=== PATIENT | female | born 1965 | race Caucasian/White ===

== ENCOUNTER 2024-01-17 18:25 | Inpatient (IN) | payer BC, MEDICAID ==
[2024-01-17] MEDS: Sodium Chloride 0.9% 1,000 ML IV ONE (19:15)
[2024-01-17 19:25] LABS: BASOPHILS PERCENT AUTO 0.2 % (0.0-1.0); EOSINOPHILS ABSOLUTE AUTO 0.1 K/mm3 (0.0-0.4); EOSINOPHILS PERCENT AUTO 0.8 % (0.0-6.0); HEMATOCRIT 21.1 % (37.0-47.0); HEMOGLOBIN 7.5 gm/dl (12.0-16.0); IMMATURE GRAN ABSOLUTE AUTO 0.08 K/mm3 (0.00-0.05); IMMATURE GRAN PERCENT AUTO 0.9 % (0.0-0.4); LYMPHOCYTES ABSOLUTE AUTO 1.4 K/mm3 (1.0-4.8); MEAN CORPUSCULAR HEMOGLOBIN 32.9 pg (28.0-32.0); MEAN CORPUSCULAR HGB CONC 35.5 g/dl (32.0-36.0); MEAN CORPUSCULAR VOLUME 92.5 fl (83.0-99.0); MEAN PLATELET VOLUME 10.9 fl (9.4-12.3); MONOCYTES ABSOLUTE AUTO 0.8 K/mm3 (0.0-0.8); MONOCYTES PERCENT AUTO 9.1 % (0.0-8.0); NEUTROPHILS ABSOLUTE AUTO 6.4 K/mm3 (1.8-7.7); NRBC ABSOLUTE 0.02 (0.00-0.02); NRBC PERCENT 0.2 % (0.0-0.2); PLATELET COUNT,PLT 269 K/mm3 (150-400); RED BLOOD CELL COUNT 2.28 M/mm3 (4.10-5.30)
[2024-01-17 20:03] LABS: A/G RATIO 0.8 (1-2); ALBUMIN 2.8 g/dl (3.4-5.0); ANION GAP 7.7 (5-15); BILIRUBIN TOTAL 1.2 mg/dL (0.2-1.0); C-REACTIVE PROTEIN 3.34 mg/dL (<0.30); CALCIUM 7.3 mg/dL (8.5-10.1); CREATININE 1.1 mg/dL (0.55-1.02); EST CRCL DRUG DOSING (CG) 38.52 mL/min; PROTEIN TOTAL,TP 6.5 g/dl (6.4-8.2)
[2024-01-17 20:12] LABS: IRON,FE 209 ug/dL (50-170)
[2024-01-17 20:13] LABS: PERCENT FE SATURATION 116 % (20-55); TOTAL IRON BINDING CAPACITY 180 ug/dL (100-400); TRANSFERRIN 144 mg/dL (202-364)
[2024-01-17 20:14] LABS: POTASSIUM,K 1.7 mEq/L (3.5-5.1)
[2024-01-17] MEDS: Potassium Chloride 10 MEQ in Premix Bag 1 BAG IV SCH (20:28)
[2024-01-17] MEDS: Potassium Chloride 20 MEQ Tab.ER PO ONE ×2 (21:46→22:48)
[2024-01-17] MEDS ORDERED: Magnesium Sulfate (4.06 MEQ/ML) 5 GM/10 ML SDV IV ONE (22:12)
[2024-01-17] MEDS: Magnesium Sulfate/Water Premix 2 GM in Premix Bag 1 BAG IV SCH (22:41)
[2024-01-18] MEDS: Sodium Chloride 0.9% 250 ML IV SCH (00:14)
[2024-01-18] MEDS: Potassium Chloride 10 MEQ in Premix Bag 1 BAG IV SCH (01:18)
[2024-01-18] MEDS: Sodium Chloride 0.9% 1,000 ML IV SCH (03:05)
[2024-01-18 04:26] LABS: BASOPHILS PERCENT AUTO 0.3 % (0.0-1.0); EOSINOPHILS ABSOLUTE AUTO 0.1 K/mm3 (0.0-0.4); EOSINOPHILS PERCENT AUTO 0.7 % (0.0-6.0); HEMATOCRIT 27.5 % (37.0-47.0); HEMOGLOBIN 9.6 gm/dl (12.0-16.0); IMMATURE GRAN ABSOLUTE AUTO 0.07 K/mm3 (0.00-0.05); IMMATURE GRAN PERCENT AUTO 0.9 % (0.0-0.4); LYMPHOCYTES ABSOLUTE AUTO 1.1 K/mm3 (1.0-4.8); LYMPHOCYTES PERCENT AUTO 14.8 % (24.0-44.0); MEAN CORPUSCULAR HEMOGLOBIN 31.8 pg (28.0-32.0); MEAN CORPUSCULAR HGB CONC 34.9 g/dl (32.0-36.0); MEAN CORPUSCULAR VOLUME 91.1 fl (83.0-99.0); MEAN PLATELET VOLUME 11.7 fl (9.4-12.3); MONOCYTES ABSOLUTE AUTO 0.8 K/mm3 (0.0-0.8); MONOCYTES PERCENT AUTO 10.2 % (0.0-8.0); NEUTROPHILS ABSOLUTE AUTO 5.4 K/mm3 (1.8-7.7); NEUTROPHILS PERCENT AUTO 73.1 % (41.0-71.0); PLATELET COUNT,PLT 156 K/mm3 (150-400); RED BLOOD CELL COUNT 3.02 M/mm3 (4.10-5.30); WHITE BLOOD CELL COUNT,WBC 7.44 K/mm3 (3.9-11.3)
[2024-01-18 04:54] LABS: A/G RATIO 0.7 (1-2); ALBUMIN 2.3 g/dl (3.4-5.0); ANION GAP 9.1 (5-15); BILIRUBIN TOTAL 1.5 mg/dL (0.2-1.0); BUN/CREATININE RATIO 14.3 (14-18); CALCIUM 6.9 mg/dL (8.5-10.1); CREATININE 0.7 mg/dL (0.55-1.02); EST CRCL DRUG DOSING (CG) 61.85 mL/min; MAGNESIUM 2.5 mg/dL (1.8-2.4); PHOSPHORUS 2.5 mg/dL (2.6-4.7); POTASSIUM,K 3.1 mEq/L (3.5-5.1); PROTEIN TOTAL,TP 5.5 g/dl (6.4-8.2)
[2024-01-18] MEDS: Potassium Chloride 20 MEQ Tab.ER PO ONE (06:06)
[2024-01-18] MEDS ORDERED: Ondansetron 4 MG Tab.DIS PO PRN (07:27)
[2024-01-18] MEDS ORDERED: Acetaminophen 325 MG Tab PO PRN (07:27)
[2024-01-18] MEDS: Phosphorus #1 250 MG Tab PO ONE (07:47)
[2024-01-18] MEDS: Pantoprazole 40 MG Tab.CR PO SCH (07:47)
[2024-01-18] MEDS ORDERED: Albuterol/Ipratropium 3.0-0.5 MG/3 ML Neb Soln NEB PRN (08:00)
[2024-01-18 08:34] LABS: RETICULOCYTE COUNT PERCENT 0.9 % (0.50-2.00)
[2024-01-18] MEDS: Nicotine 21 MG/24 Hr Patch TRDERM SCH (08:42)
== END 2024-01-18 10:43 | disposition left against medical advice (07) | DRG 663 ==
LOC: JD.ED 18:25 → JD.MS 21:29
PROVIDERS: ADMIT Family Medicine; ATTEND Family Medicine
PROC: 30233N1 Transfusion of Nonautologous Red Blood Cells into Peripheral Vein, Percutaneous Approach (ICD-10-PCS; principal; 2024-01-18)
DX: D64.9 Anemia, unspecified (principal); E46 Unspecified protein-calorie malnutrition; E87.1 Hypo-osmolality and hyponatremia; N17.9 Acute kidney failure, unspecified; Z66 Do not resuscitate; E87.6 Hypokalemia; E83.42 Hypomagnesemia; E83.39 Other disorders of phosphorus metabolism; F17.210 Nicotine dependence, cigarettes, uncomplicated; J44.9 Chronic obstructive pulmonary disease, unspecified; E87.8 Other disorders of electrolyte and fluid balance, not elsewhere classified; E88.09 Other disorders of plasma-protein metabolism, not elsewhere classified; Z53.21 Procedure and treatment not carried out due to patient leaving prior to being seen by health care provider; Z11.52 Encounter for screening for COVID-19; Z87.440 Personal history of urinary (tract) infections; Z98.891 History of uterine scar from previous surgery; Z87.81 Personal history of (healed) traumatic fracture
CPT/HCPCS: 36415; 36430; 71045; 71045-26; 80053; 80307; 82272; 83540; 83735; 83880; 84100; 84132; 84466; 84484; 85018; 85025; 85045; 86140; 86850; 86900; 86901; 86922; 87428-QW; 93005; 93010; 96365; 99223; 99284; 99285-25; A9270-GY; J3475; J3480; J7030; J7050; P9016

== ENCOUNTER 2024-07-23 15:13 | Emergency (ER) | payer MEDICAID ==
[2024-07-23] MEDS ORDERED: Sodium Chloride 0.9% 10 ML Syringe FLUSH PRN (15:45)
[2024-07-23 16:52] LABS: BASOPHILS PERCENT AUTO 0.5 % (0.0-1.0); EOSINOPHILS PERCENT AUTO 0.7 % (0.0-6.0); HEMATOCRIT 27.8 % (37.0-47.0); HEMOGLOBIN 8.9 gm/dl (12.0-16.0); IMMATURE GRAN ABSOLUTE AUTO 0.02 K/mm3 (0.00-0.05); IMMATURE GRAN PERCENT AUTO 0.4 % (0.0-0.4); LYMPHOCYTES ABSOLUTE AUTO 2.3 K/mm3 (1.0-4.8); MEAN CORPUSCULAR HEMOGLOBIN 34.1 pg (28.0-32.0); MEAN CORPUSCULAR VOLUME 106.5 fl (83.0-99.0); MEAN PLATELET VOLUME 10.2 fl (9.4-12.3); MONOCYTES ABSOLUTE AUTO 0.4 K/mm3 (0.0-0.8); MONOCYTES PERCENT AUTO 7.4 % (0.0-8.0); NEUTROPHILS ABSOLUTE AUTO 2.9 K/mm3 (1.8-7.7); PLATELET COUNT,PLT 177 K/mm3 (150-400); RED BLOOD CELL COUNT 2.61 M/mm3 (4.10-5.30); WHITE BLOOD CELL COUNT,WBC 5.71 K/mm3 (3.9-11.3)
[2024-07-23 17:13] LABS: A/G RATIO 0.6 (1-2); ANION GAP 10.5 (5-15); C-REACTIVE PROTEIN 0.39 mg/dL (<0.30); CALCIUM 8.4 mg/dL (8.5-10.1); CREATININE 0.5 mg/dL (0.55-1.02); EST CRCL DRUG DOSING (CG) 78.6 mL/min; ETHANOL BLOOD MEDICAL 0.15 gm% (0.00); MAGNESIUM 1.4 mg/dL (1.8-2.4); PROTEIN TOTAL,TP 5.5 g/dl (6.4-8.2)
[2024-07-23 17:14] LABS: POTASSIUM,K 2.5 mEq/L (3.5-5.1)
[2024-07-23] MEDS: Sodium Chloride 0.9% 500 ML IV STA (17:37)
[2024-07-23] MEDS: Potassium Chloride 20 MEQ Tab.ER PO ONE ×2 (17:38→22:38)
[2024-07-23] MEDS: Potassium Chloride 10 MEQ in Premix Bag 1 BAG IV SCH (17:56)
[2024-07-23] MEDS: Sodium Chloride 0.9% 500 ML IV ONE (18:10)
[2024-07-23 19:04] LABS: APPEARANCE,URINE SLT CLOUDY (Clear); BILIRUBIN,URINE NEGATIVE (Negative); COLOR,URINE YELLOW (Yellow); GLUCOSE,URINE NEGATIVE (Negative); KETONES,URINE NEGATIVE (Negative); LEUKOCYTE ESTERASE,URINE 1+ (Negative); NITRITE,URINE NEGATIVE (Negative); OCCULT BLOOD,URINE NEGATIVE (Negative); PROTEIN,URINE NEGATIVE (Negative); UROBILINOGEN,URINE 0.2 (0.2-1.0)
[2024-07-23] MEDS: Magnesium Sulf/Wat 4 GM/50 mL 4 GM in Premix Bag 1 BAG IV ONE (19:08)
[2024-07-23 19:11] LABS: RBC,URINE 0-5 /hpf (0-5)
[2024-07-23 19:12] LABS: BACTERIA,URINE MANY /hpf (FEW); MUCUS,URINE FEW /hpf (FEW)
[2024-07-23] MEDS: Amoxicillin/Clavulanate K 600-42.9 MG/5 ML Susp 125 ML Bottle PO ONE (22:37)
== END 2024-07-23 22:49 | disposition home or self-care (01) ==
LOC: JD.ED 15:13
DX: S42.035A Nondisplaced fracture of lateral end of left clavicle, initial encounter for closed fracture (principal); D64.9 Anemia, unspecified; E46 Unspecified protein-calorie malnutrition; E87.6 Hypokalemia; F10.90 Alcohol use, unspecified, uncomplicated; E88.09 Other disorders of plasma-protein metabolism, not elsewhere classified; F17.210 Nicotine dependence, cigarettes, uncomplicated; Z79.899 Other long term (current) drug therapy; W19.XXXA Unspecified fall, initial encounter; Y92.009 Unspecified place in unspecified non-institutional (private) residence as the place of occurrence of the external cause
CPT/HCPCS: 36415; 70450; 72125; 73030; 73090; 73100; 73120; 80053; 80307; 81001; 83735; 85025; 86140; 87086; 96365; 96366; 96368; 99284; A9270; J3475; J3480; J7030